=== PATIENT | female | born 1960 | race Caucasian/White ===

== ENCOUNTER → 2019-08-22 16:13 | Outpatient (CLI) | payer MEDICAID, SELFPAY ==
--- NOTE | 2019-08-22 16:30 | RAD_ITS ---
STUDY: X-RAY - LUMBAR SPINE REASON FOR EXAM: Female, 58 years old. PAIN TECHNIQUE: 3 view(s) of the lumbar spine were obtained. COMPARISON: None FINDINGS: Vertebral body heights are preserved. There is moderate diffuse spondylosis. Likely grade 1 anterolisthesis of L5 on S1. No acute fracture is identified. Soft tissues are unremarkable. Impressions are clips are noted. IMPRESSION: Diffuse spondylosis with a mild anterolisthesis of L5 on S1 consider further evaluation with MRI as clinically indicated. Electronically Signed: Rj Dennis, at 21:54 EDT Tel , Service support , RAD/Lumbar Spine 2 or 3 Views
--- NOTE | 2019-08-22 16:30 | RAD_ITS ---
STUDY: X-RAY - LEFT FOOT CLINICAL: Female, 58 years old. PAIN TECHNIQUE: 2 view(s) of the foot. COMPARISON: None. FINDINGS: No acute fracture, or dislocation. Severe arthrosis is noted at the fifth DIP joint. Postsurgical changes and fusion is noted at the first MTP joint. No significant joint space narrowing. No significant productive changes. No significant soft tissue swelling. RAD/Foot 2 Views IMPRESSION: No acute fracture or dislocation. Postsurgical changes and severe arthrosis as above. Electronically Signed: Rj Dennis, at 20:16 EDT Tel , Service support ,
--- NOTE | 2019-08-22 16:30 | RAD_ITS ---
STUDY: X-RAY - RIGHT FOOT CLINICAL: Female, 58 years old. PAIN TECHNIQUE: 2 view(s) of the foot. COMPARISON: None. FINDINGS: No acute fracture, dislocation or osseous destruction. Moderate arthrosis is noted at the first MTP joint and distal fifth interphalangeal joint. No significant soft tissue swelling. IMPRESSION: No acute fracture or dislocation. Degenerative changes as above. Electronically Signed: Rj Dennis, at 21:40 EDT Tel , Service support , RAD/Foot 2 Views
--- NOTE | 2019-08-22 16:30 | RAD_ITS ---
STUDY: X-RAY - RIGHT KNEE REASON FOR EXAM: Female, 58 years old. PAIN TECHNIQUE: 4 view(s) of the knee. COMPARISON: None. FINDINGS: No acute fracture, dislocation or osseous destruction. Diffuse arthrosis most prominently at the patellofemoral articulation. No significant soft tissue swelling. IMPRESSION: No acute fracture or dislocation. Diffuse arthrosis most prominently at the patellofemoral articulation. Electronically Signed: Rj Dennis, at 21:51 EDT Tel , Service support , RAD/Knee 3 Views
--- NOTE | 2019-08-22 16:30 | RAD_ITS ---
STUDY: X-RAY - PELVIS AND BILATERAL HIPS REASON FOR EXAM: Female, 58 years old. PAIN TECHNIQUE: AP view of the pelvis.? 2 views of the right hip, and 2 views of the left hip were obtained. COMPARISON: None. FINDINGS: No acute fracture, dislocation or osseous destruction. Moderate bilateral hip arthrosis and degenerative changes of the visualized lumbar spine No significant soft tissue swelling. IMPRESSION: Moderate diffuse hip and lumbar spine arthrosis. No acute osseous abnormality. Electronically Signed: Rj Dennis, at 21:50 EDT Tel , Service support , RAD/Hips B/L min 2 views w/ Pelvis
[2019-08-22 17:15] LABS: Absolute Lymphocyte Count 1.93 X10^3/uL (0.83-4.51); Absolute Neutrophil Count 4.3 X10^3/uL (2.0-7.7); Basophil# 0.04 X10^3/uL; Basophil% 0.6 % (0-1); Eosinophil# 0.15 X10^3/uL; Eosinophils% 2.1 % (0-5); Hemoglobin 13.5 g/dL (12.0-15.0); Lymphocyte # 1.93 X10^3/ul (4.0); Lymphocyte % 27.6 % (19-41); Mean Corp Hgb Conc 32.1 g/dL (32-36); Mean Corpuscular Hgb 28.4 pg (27.0-32.0); Mean Corpuscular Volume 88.2 fL (81-99); Mean Platelet Vol. 9.1 fl (6.2-12.0); Monocyte# 0.56 X10^3/uL; NRBC Flagged by Analyzer 0 % (0-5); Neutrophil % 61.4 % (47-70); Platelet Count 251 K/mm3 (150-450); RBC Distribution Width CV 12.9 % (11.6-14.6); RBC Distribution Width SD 41.9 fl (35.1-43.9); Red Blood Count 4.76 M/mm3 (4.2-5.4)
[2019-08-22 18:24] LABS: ALB/GLOB Ratio 1.1 RATIO (0.9-2.4); AST(SGOT) 19 U/L (15-37); Alanine Aminotransfer ALT/SGPT 25 U/L (13-56); Albumin, Serum 3.8 g/dL (3.2-5.0); Alkaline Phosphatase 76 U/L (45-117); Anion Gap 7 (5-15); BUN 15 mg/dL (7-18); BUN/Creat Ratio 24.5 RATIO (10-20); Calcium,Total 9.1 mg/dL (8.5-10.1); Chloride 104 mmol/L (98-107); Creatinine, Serum 0.61 mg/dL (0.55-1.02); EST Glomerular Filtration Rate 107 mL/min (>60); Est Glom Filt Rate - Afr Amer 129 mL/min (>60); Globulin 3.4 g/dL (2.2-4.2); Glucose 80 mg/dL (74-106); Potassium 3.6 mmol/L (3.5-5.1); Protein, Total 7.2 g/dL (6.4-8.2); Sodium Level 140 mmol/L (136-145)
[2019-08-23 07:26] LABS: Hepatitis C Antibody Non-Reactive (Nonreactive)
== END ==
PROVIDERS: PCP Family Medicine; Referring Provider Family Medicine Geriatric Medicine; Visit Provider Family Medicine Geriatric Medicine
DX: R53.83 Other fatigue (principal); M54.9 Dorsalgia, unspecified; M25.569 Pain in unspecified knee; M79.609 Pain in unspecified limb; M25.559 Pain in unspecified hip; Z13.89 Encounter for screening for other disorder
CPT/HCPCS: 36415; 72100; 73521; 73562; 73620; 80053; 84443; 85025; 86803

== ENCOUNTER → 2019-10-16 10:42 | Outpatient (CLI) | payer MEDICAID, SELFPAY | PROVIDERS: PCP Family Medicine Geriatric Medicine; Visit Provider Anesthesiology | DX: Z11.59 Encounter for screening for other viral diseases (principal) | CPT/HCPCS: 87635; G2023; U0003 ==

== ENCOUNTER 2019-10-23 07:40 | Day surgery (SDC) | payer MEDICAID, SELFPAY ==
--- NOTE | 2019-10-23 07:57 | H&P.OPEN ---
History of Present Illness Date of Admission: 10/23/19 The patient is a 59 year old F presents for screening colonoscopy. Patient has never had a previous colonoscopy, denies any family history of colon cancer. Denies any chronic abdominal pain however she does states she has reflux daily and has been on Pepcid 40 mg p.o. daily currently but before has also been on omeprazole 20 mg p.o. daily which we have the symptoms better than the Pepcid. Patient states she is been on reflux medication for about 5 years never had an EGD. Patient has bowel movements daily denies any blood Past Medical/Surgical History - Planned Operation Planned Operative Procedure/s: cscope open access Date of Operative Procedure: 10/23/19 Permit Signed: No S.O.S: No Is This Patient Having a Total Joint: No - Previous Hospitalizations/Surgeries HX Hospitalizations: No HX of Surgeries: foot surgery. gallbladder. cataract bilat Any Problems With Anesthesia: No You/Your Family Experience Fever (Hyperthermia) With Anes: No Cholinesterase deficiency: No - Cardiovascular Hx Chest Pain within Last 2 months: No Hx of Irregular Heartbeat and/or Afib: No Hx Heart Attack: No Hx Congestive Heart Failure: No Hx Rheumatic Fever: No Hx Hypertension: No Hx Internal Defibrillator: No Hx Pacemaker: No Hx Cardiac Catheterization: No Hx Cardiac Surgery/Stents/Etc.: No Hx Stress Test: Yes - 3 yrs ago/beryl/pt states negative HX Edema: No Hx Pain in Legs when Walking/Leg Cramps: No - Respiratory Chronic Cough: No HX of Shortness of Breath: No Hoarseness: No Hx Chronic Obstructive Pulmonary Disease (COPD): No Hx Asthma: No Hx Emphysema: No Hx Sleep Apnea: No Hx Oxygen Use at Home: No Hx Respiratory Tract Infection/Cold (presently): No Do You Snore Loudly (louder than talking or can be heard): Yes Do You Often Feel Tired/ Fatigued/ Sleepy Dring Daytime?: Yes Has Anyone Observed You Stop Breathing During Sleep?: No Result (for STOP score): Positive Hx Smoking: Yes - quit 5 yrs ago Smoking Status: Former smoker - Gastrointestinal Hx Gastroesophageal Reflux: Yes Controlled With Meds: Yes - not always Hx Gastrointestinal Disorders: No Hx Gastrointestinal Bleed: No Hx Ulcer: No Hx Hiatal Hernia: No Difficulty Chewing/Swallowing: No Recent Onset of Swallowing Problems: No Special diet followed at home: No Hx Unplanned Weight Loss of 20#: No HX Unplanned Weight Gain of 20#: No - Neurological Hx Seizures: No HX Syncope/Blackout Spells/Unconsciousness: No Hx CVA/Stroke: No Hx Transient Ischemic Attacks (TIA): No Hx Multiple Sclerosis: No Hx Parkinson's Disease: No Hx Head/Neck Injury: No Hx Headaches: No Hx Back Injury/Pain: Yes - occ back pain Recent Onset of Speech Difficulty: No Restless Legs: Yes Does patient have nerve stimulator: No Patient instructed to have device shut off: No Rep notified?: No - Blood Disorder Hx Leukemia: No Bleeding Tendencies: No Hx Deep Vein Thrombosis: No Hx High Cholesterol: No Blood Transmitted Disease: No Hx Hepatitis: No Hx Cirrhosis: No Hx Anemia: No Hx Blood Disorders: No - Reproduction : No Is Patient Lactating: No Hx Hysterectomy: No Hx Tubal Ligation: No Are You Post Menopause: Yes - Genitourinary Hx Renal Disease: No - Musculoskeletal Hx Arthritis: Yes Hx Rheumatoid Arthritis: No Hx Gout: No Recent Onset of an Orthopedic Problem: No - Endocrine Hx Diabetes: No Thyroid Disease: No Hx Steroid Therapy: No - Psycho/Social Hx Substance Use: No Hx Alcohol Use: Yes - occ Hx Anxiety: No Hx Depression: No Mental Illness: No Hx Dementia: No - Miscellaneous Hx Cancer: No Recent Exposure to Contagious Disease: No Active MRSA: No Hx of C-Diff: No Any Loose Teeth: No Allergies No Known Allergies Allergy (Verified 10/23/19 08:16) - Discharge Is Pt Admitted From a Longterm, or a Residential: No After D/C, Where Do you Plan to Go: Return Home - Physical Exam General: Alert, Oriented x3, Cooperative, No apparent distress HEENT: Atraumatic Lungs: Normal air movement Cardiovascular: Regular rate Abdomen: Soft, Non Tender, Non-Distended Extremities: No clubbing, No cyanosis, No edema Neurological: Cranial nerves II-XII grossly intact Psych/Mental Status: Normal Affect Assessment/Plan 59-year-old female screening for colon cancer, GERD Patient currently not precerted for EGD will plan to schedule at a later date. Procedure Criteria Procedure Type: Elective COVID Risk Discussion: The surgeon/proceduralist and patient have discussed in detail the risk of exposure to and/or potential harm posed by the COVID-19 virus with having a surgery/procedure at this time versus the risk of delaying the surgery/procedure. It is not possible to know either the risk of delaying the surgery or procedure or chance of getting an infection with perfect accuracy, but a joint decision was made between the patient and the surgeon/proceduralist to proceed at this time with the scheduled surgery/procedure as indicated on the consent form. Surgery Risks - Colonoscopy I discussed with the patient the risks of the procedure: Yes Risks Include but are not Limited To: Risks include but are not limited to: Bleeding, perforation requiring further surgery, inability to complete colonoscopy requiring barium enema.
[2019-10-23 08:16] VITALS: BP 131/85; PULSE 59; RESP 16; TEMP 37.3; O2SAT 98; BMI 28.4
[2019-10-23] MEDS: Lactated Ringers 1,000 ML 100 ML IV (08:22)
[2019-10-23 09:17] VITALS: BP 110/69; BP 131/85; PULSE 63; RESP 16; TEMP 36.9; O2SAT 100
--- NOTE | 2019-10-23 09:21 | OP.COLON_ITS ---
Patient Name: Stephany Merino Procedure Date: 10/23/2019 8:36 AM Date of : 1960 Age: 59 Procedure: Colonoscopy Indications: Screening for colorectal malignant neoplasm Providers: Xuan Blake MD Referring MD: Lewis Villarreal MD Medicines: Monitored Anesthesia Care Patient Profile: This is a 59 year old female. Last Colonoscopy: none. The patient's first colonoscopy is today. Complications: No immediate complications. Procedure: Pre-Anesthesia Assessment: - Prior to the procedure, a History and Physical was performed, and patient medications and allergies were reviewed. The patient's tolerance of previous anesthesia was also reviewed. The risks and benefits of the procedure and the sedation options and risks were discussed with the patient. All questions were answered, and informed consent was obtained. Prior Anticoagulants: The patient has taken no previous anticoagulant or antiplatelet agents. ASA Grade Assessment: Per anesthesia. After reviewing the risks and benefits, the patient was deemed in satisfactory condition to undergo the procedure. After I obtained informed consent, the scope was passed under direct vision. Throughout the procedure, the patient's blood pressure, pulse, and oxygen saturations were monitored continuously. The Colonoscope was introduced through the anus and advanced to the cecum, identified by the appendiceal orifice, ileocecal valve and palpation. The colonoscopy was performed without difficulty. The patient tolerated the procedure well. The quality of the bowel preparation was good. Scope In: 8:52:55 AM Scope Withdrawal Time 0 hours 9 minutes 41 seconds Scope Out: 9:13:12 AM Total Procedure Duration Time 0 hours 20 minutes 17 seconds Findings: Hemorrhoids were found on perianal exam. A few small-mouthed diverticula were found in the sigmoid colon. External and internal hemorrhoids were found. The hemorrhoids were Grade I (internal hemorrhoids that do not prolapse). The exam was otherwise without abnormality. Impression: - Hemorrhoids found on perianal exam. - Diverticulosis in the sigmoid colon. - External and internal hemorrhoids. - The examination was otherwise normal. - No specimens collected. Recommendation: - Discharge patient to home. - High fiber diet. - Continue present medications. - Repeat colonoscopy in 10 years for screening purposes. Procedure Code(s): --- Professional --- G0121, PT, Colorectal cancer screening; colonoscopy on individual not meeting criteria for high risk Diagnosis Code(s): --- Professional --- Z12.11, Encounter for screening for malignant neoplasm of colon K64.0, First degree hemorrhoids K57.30, Diverticulosis of large intestine without perforation or abscess without bleeding CPT copyright 2017 [employer]. All rights reserved. The codes documented in this report are preliminary and upon tug hand review may be revised to meet current compliance requirements. MD Xuan Justice MD 10/23/2019 9:20:45 AM This report has been signed electronically. Number of Addenda: 0 Note Initiated On: 10/23/2019 8:36 AM
--- NOTE | 2019-10-23 09:21 | OP.CCLET_ITS ---
10/23/2019 Lewis Villarreal MD [address] [place] [address] Re : Colonoscopy procedure for Stephany Merino Dear Dr. Villarreal This procedure was performed on Wednesday, October 23, 2019. My impressions and recommendations are as follows: Impressions : - Hemorrhoids found on perianal exam. - Diverticulosis in the sigmoid colon. - External and internal hemorrhoids. - The examination was otherwise normal. - No specimens collected. Recommendations : - Discharge patient to home. - High fiber diet. - Continue present medications. - Repeat colonoscopy in 10 years for screening purposes. My findings are described in the full procedure note, which is enclosed. If I can be of further assistance, please feel free to contact me at Doctor phone number(s): , Work: . Sincerely, MD Xuan Justice MD 10/23/2019 9:20:45 AM This report has been signed electronically.
[2019-10-23 09:22] VITALS: BP 109/70; BP 131/85; PULSE 56; RESP 16; O2SAT 98
[2019-10-23 09:27] VITALS: BP 113/67; BP 131/85; PULSE 55; RESP 17; O2SAT 100
[2019-10-23 09:32] VITALS: BP 114/78; BP 131/85; PULSE 61; RESP 16; TEMP 36.4; O2SAT 100
[2019-10-23 09:54] VITALS: BP 131/85
== END 2019-10-23 09:55 | disposition home or self-care (01) ==
LOC: EN 07:41 → AC 07:43
PROVIDERS: PCP Family Medicine Geriatric Medicine; Referring Provider Family Medicine Geriatric Medicine; Visit Provider Surgery
PROC: 0DJD8ZZ Inspection of Lower Intestinal Tract, Via Natural or Artificial Opening Endoscopic (ICD-10-PCS; CPT 45378; principal; 2019-10-23 08:40)
DX: Z12.11 Encounter for screening for malignant neoplasm of colon (principal); Z87.891 Personal history of nicotine dependence; K21.9 Gastro-esophageal reflux disease without esophagitis; M19.90 Unspecified osteoarthritis, unspecified site; K57.30 Diverticulosis of large intestine without perforation or abscess without bleeding; K64.4 Residual hemorrhoidal skin tags; K64.0 First degree hemorrhoids
CPT/HCPCS: 45378; J7120; J2405

== ENCOUNTER 2019-11-11 09:25 | Day surgery (SDC) | payer MEDICAID, SELFPAY ==
[2019-11-11] VITALS (7 sets, daily range): BP systolic 102–132; BP diastolic 68–74; PULSE 49–57; RESP 16; TEMP 36.3–36.8; O2SAT 96–100; BMI 28.8
--- NOTE | 2019-11-11 | GASB_PTH ---
PATIENT: YULIA BERMEO LOC: EN U#:[id number] AGE/SX: 59/F ROOM: RE11/11/[address]: Dr. Xuan Blake MD : 1960 BED: DIS: 11/11/2019 SPEC #: [id number] RECD: 11/11/19 11:58 STATUS: JEFFREY REAlyse #: [id number] MARIAELENA: 11/11/19 00:[address]: Xuan Blake DEPT: SURGICAL PATHOLOGY RECD BY: Robert Youssef ENTERED: 11/11/19 11:58 SP TYPE: Gastric Bx OTHR DR: Dr. Lewis Villarreal MD Tissues: A - Gastric mucous membrane B - Gastric mucous membrane C - Esophagus, NOS Procedures: Surgery Specimen Level IV HEADER OPERATION: EGD open access (MAC) PRE-OP DIAGNOSIS: Acid reflux TISSUE SUBMITTED: A - Antral biopsy for H. pylori and pathology, B - GE junction biopsy, C - Mid esophageal biopsy MICROSCOPIC DIAGNOSIS A. Gastric antrum, biopsy: Mild chronic gastritis. See comment. B. Gastroesophageal junction, biopsy: Fragments of benign squamous mucosa. No evidence of inflammation. C. Mid esophagus, biopsy: Fragments of benign squamous mucosa. No evidence of inflammation. AM:isai 11/12/19 COMMENT A. The results of immunohistochemistry for Helicobacter pylori will be reported separately ([id number]). MICROSCOPIC DESCRIPTION Slides are reviewed. GROSS DESCRIPTION A - Received in fixative is one container labeled with the patient's name and designated antral biopsy. The specimen consists of one irregular fragment of light negro soft tissue that measures 0.6 x 0.3 x 0.1 cm. The specimen is totally submitted in one cassette. B - Received in fixative is one container labeled with the patient's name and designated GE junction biopsy. The specimen consists of two irregular fragments of light negro soft tissue that in aggregate measure 0.5 x 0.3 x 0.1 cm. The specimen is totally submitted in one cassette. C - Received in fixative is one container labeled with the patient's name and designated mid esophagus. The specimen consists of one irregular fragment of light negro soft tissue that measures 0.6 x 0.6 x <0.1 cm. The specimen is totally submitted in one cassette. / AM:isai 11/11/19 TC:3 CPT: 76161 x3
[2019-11-11] MEDS: Lactated Ringers 1,000 ML 100 ML IV (09:45)
--- NOTE | 2019-11-11 10:21 | H&P.OPEN ---
History of Present Illness Date of Admission: 11/11/19 The patient is a 59 year old F presents for an EGD as patient has been on reflux medication?Pepcid 40 mg p.o. daily currently but was previously on omeprazole 20 mg p.o. daily-for about 5 years never had an EGD.. States that the symptoms are controlled with medication. Patient recently had a colonoscopy which only showed diverticulosis. Past Medical/Surgical History - Planned Operation Planned Operative Procedure/s: EGD Date of Operative Procedure: 11/11/19 Permit Signed: No S.O.S: No Is This Patient Having a Total Joint: No - Previous Hospitalizations/Surgeries HX Hospitalizations: No HX of Surgeries: foot surgery. gallbladder. cataract bilat. colonoscopy 10/23/2019 Any Problems With Anesthesia: No You/Your Family Experience Fever (Hyperthermia) With Anes: No Cholinesterase deficiency: No - Cardiovascular Hx Chest Pain within Last 2 months: No Hx of Irregular Heartbeat and/or Afib: No Hx Heart Attack: No Hx Congestive Heart Failure: No Hx Rheumatic Fever: No Hx Hypertension: No Hx Internal Defibrillator: No Hx Pacemaker: No Hx Cardiac Catheterization: No Hx Cardiac Surgery/Stents/Etc.: No Hx Stress Test: Yes - 3 yrs ago/beryl/pt states negative HX Edema: No Hx Pain in Legs when Walking/Leg Cramps: No - Respiratory Chronic Cough: No HX of Shortness of Breath: No Hoarseness: No Hx Chronic Obstructive Pulmonary Disease (COPD): No Hx Asthma: No Hx Emphysema: No Hx Sleep Apnea: No Hx Oxygen Use at Home: No Hx Respiratory Tract Infection/Cold (presently): No Do You Snore Loudly (louder than talking or can be heard): Yes Do You Often Feel Tired/ Fatigued/ Sleepy Dring Daytime?: Yes Has Anyone Observed You Stop Breathing During Sleep?: No Result (for STOP score): Positive Hx Smoking: Yes - quit 2014 Smoking Status: Former smoker - Gastrointestinal Hx Gastroesophageal Reflux: Yes Controlled With Meds: Yes - not always/famotidine Hx Gastrointestinal Disorders: No Hx Gastrointestinal Bleed: No Hx Ulcer: No Hx Hiatal Hernia: No Difficulty Chewing/Swallowing: No Recent Onset of Swallowing Problems: No Special diet followed at home: No Hx Unplanned Weight Loss of 20#: No HX Unplanned Weight Gain of 20#: No - Neurological Hx Seizures: No HX Syncope/Blackout Spells/Unconsciousness: No Hx CVA/Stroke: No Hx Transient Ischemic Attacks (TIA): No Hx Multiple Sclerosis: No Hx Parkinson's Disease: No Hx Head/Neck Injury: No Hx Headaches: No Hx Back Injury/Pain: Yes - occ back pain/arthritis Recent Onset of Speech Difficulty: No Restless Legs: Yes Does patient have nerve stimulator: No - Blood Disorder Hx Leukemia: No Bleeding Tendencies: No Hx Deep Vein Thrombosis: No Hx High Cholesterol: No Blood Transmitted Disease: No Hx Hepatitis: No Hx Cirrhosis: No Hx Anemia: No Hx Blood Disorders: No - Reproduction : No Is Patient Lactating: No Hx Hysterectomy: No Hx Tubal Ligation: No Are You Post Menopause: Yes - Genitourinary Hx Renal Disease: No - prolapse bladder per hx - Musculoskeletal Hx Arthritis: Yes - back/feet/knees,hips Hx Rheumatoid Arthritis: No Hx Gout: No Recent Onset of an Orthopedic Problem: No - Endocrine Hx Diabetes: No Thyroid Disease: No Hx Steroid Therapy: No - Psycho/Social Hx Substance Use: No Hx Alcohol Use: Yes - occ Hx Anxiety: No Hx Depression: No Mental Illness: No Hx Dementia: No - Miscellaneous Hx Cancer: No Recent Exposure to Contagious Disease: No Active MRSA: No Hx of C-Diff: No Any Loose Teeth: No Allergies No Known Allergies Allergy (Verified 11/11/19 10:07) - Discharge Is Pt Admitted From a Retirement, or a Penitentiary: No Who Could Help: family After D/C, Where Do you Plan to Go: Return Home - Physical Exam Vitals/I&O's: Vital Signs Temp Pulse Resp BP Pulse Ox 98.3 F 57 L 16 132/68 H 100 11/11/19 10:07 11/11/19 10:07 11/11/19 10:07 11/11/19 10:07 11/11/19 10:07 Oxygen Delivery Method Room Air Weight: 184 lb Body Mass Index (BMI) 28.8 General: Alert, Oriented x3, Cooperative, No apparent distress HEENT: Atraumatic Lungs: Normal air movement Cardiovascular: Regular rate Abdomen: Soft, Non Tender, Non-Distended Extremities: No clubbing, No cyanosis, No edema Assessment/Plan All Active Problems Acid reflux (Acute) 59-year-old female with GERD Procedure Criteria Procedure Type: Elective COVID Risk Discussion: The surgeon/proceduralist and patient have discussed in detail the risk of exposure to and/or potential harm posed by the COVID-19 virus with having a surgery/procedure at this time versus the risk of delaying the surgery/procedure. It is not possible to know either the risk of delaying the surgery or procedure or chance of getting an infection with perfect accuracy, but a joint decision was made between the patient and the surgeon/proceduralist to proceed at this time with the scheduled surgery/procedure as indicated on the consent form. Surgery Risks - Colonoscopy I discussed with the patient the risks of the procedure: Yes Risks Include but are not Limited To: Risks include but are not limited to: Bleeding, perforation requiring further surgery, anesthesia etc.
--- NOTE | 2019-11-11 10:30 | IMM_PTH ---
PATIENT: YULIA BERMEO LOC: EN U#:[id number] AGE/SX: 59/F ROOM: RE11/11/[address]: Dr. Xuan Blake MD : 1960 BED: DIS: 11/11/2019 SPEC #: [id number] RECD: 11/11/19 12:06 STATUS: JEFFREY REAlyse #: [id number] MARIAELENA: 11/11/19 10:[address]: Xuan Blake DEPT: IMMUNOHISTOCHEMISTRY RECD BY: [place]ia Huynh ENTERED: 11/11/19 12:06 SP TYPE: IMMUNO OTHR DR: Dr. Lewis Villarreal MD Tissues: A - Stomach, NOS Procedures: H Pylori (initial) PHYSICIAN & INSTITUTION [place] [address] SPECIMEN INFORMATION: Tissue Source: A - Antral biopsy Clinical Info: Acid reflux Specimen Number: [id number] CPT code: 94907 METHODOLOGY: Deparaffinized sections of prefer/formalin-fixed tissue or PAP/DQ stained slides are incubated with monoclonal/polyclonal antibodies/oligonucleotide probes. Localization is made via biotin free immunoperoxidase method. Appropriate controls are performed and reacted as expected. Results on target cell population are indicated in the following table: RESULTS: ANTIBODY / CLONE RESULT Block A H Pylori (polyclonal) negative These tests were developed and their performance characteristics determined by [facility]. They may not have been cleared or approved by the U.S. Food and Drug Administration. The FDA has determined that such clearance or approval is not necessary. INTERPRETATION: A. Antral biopsy: Negative for Helicobacter pylori organisms. AM:isai 11/13/19
--- NOTE | 2019-11-11 10:48 | OP.CCLET_ITS ---
11/11/2019 Lewis Villarreal MD [address] [place] [address] Re : Upper GI endoscopy procedure for Stephany Merino Dear Dr. Villarreal This procedure was performed on Monday, November 11, 2019. My impressions and recommendations are as follows: Impressions : - Z-line variable, 38 cm from the incisors. Biopsied. - Erythematous mucosa in the antrum. Biopsied. - Erythema in the middle third of the esophagus. Biopsied. - Normal examined duodenum. Recommendations : - Await pathology results. - Discharge patient to home. - Use a proton pump inhibitor PO daily instead of pepcid. - Continue present medications. My findings are described in the full procedure note, which is enclosed. If I can be of further assistance, please feel free to contact me at Doctor phone number(s): , Work: . Sincerely, MD Xuan Justice MD 11/11/2019 10:47:30 AM This report has been signed electronically.
--- NOTE | 2019-11-11 10:48 | OP.EGD_ITS ---
Patient Name: Stephany Merino Procedure Date: 11/11/2019 10:24 AM Date of : 1960 Age: 59 Procedure: Upper GI endoscopy Indications: Follow-up of gastro-esophageal reflux disease Providers: Xuan Blake MD Referring MD: Lewis Villarreal MD Medicines: Monitored Anesthesia Care Patient Profile: This is a 59 year old female. Complications: No immediate complications. Procedure: Pre-Anesthesia Assessment: - Prior to the procedure, a History and Physical was performed, and patient medications and allergies were reviewed. The patient's tolerance of previous anesthesia was also reviewed. The risks and benefits of the procedure and the sedation options and risks were discussed with the patient. All questions were answered, and informed consent was obtained. Prior Anticoagulants: The patient has taken no previous anticoagulant or antiplatelet agents. ASA Grade Assessment: Per anesthesia. After reviewing the risks and benefits, the patient was deemed in satisfactory condition to undergo the procedure. After obtaining informed consent, the endoscope was passed under direct vision. Throughout the procedure, the patient's blood pressure, pulse, and oxygen saturations were monitored continuously. The gastroscope was introduced through the mouth, and advanced to the second part of duodenum. The upper GI endoscopy was accomplished without difficulty. The patient tolerated the procedure well. Scope In: 10:31:01 AM Scope Out: 10:36:54 AM Total Procedure Duration Time 0 hours 5 minutes 53 seconds Findings: The Z-line was variable and was found 38 cm from the incisors. Biopsies were taken with a cold forceps for histology. Mildly erythematous mucosa without bleeding was found in the gastric antrum. Biopsies were taken with a cold forceps for histology. Biopsies were taken with a cold forceps for Helicobacter pylori cultures. Mild erythema was found in the middle third of the esophagus. Biopsies were taken with a cold forceps for histology. The examined duodenum was normal. Impression: - Z-line variable, 38 cm from the incisors. Biopsied. - Erythematous mucosa in the antrum. Biopsied. - Erythema in the middle third of the esophagus. Biopsied. - Normal examined duodenum. Recommendation: - Await pathology results. - Discharge patient to home. - Use a proton pump inhibitor PO daily instead of pepcid. - Continue present medications. Procedure Code(s): --- Professional --- 43999, Esophagogastroduodenoscopy, flexible, transoral; with biopsy, single or multiple Diagnosis Code(s): --- Professional --- K22.8, Other specified diseases of esophagus K31.89, Other diseases of stomach and duodenum K21.9, Gastro-esophageal reflux disease without esophagitis CPT copyright 2017 [employer]. All rights reserved. The codes documented in this report are preliminary and upon box toe buffer review may be revised to meet current compliance requirements. MD Xuan Justice MD 11/11/2019 10:47:30 AM This report has been signed electronically. Number of Addenda: 0 Note Initiated On: 11/11/2019 10:24 AM
== END 2019-11-11 11:47 | disposition home or self-care (01) ==
LOC: EN 09:27 → AC 09:27
PROVIDERS: Anesthesiology; PCP Family Medicine Geriatric Medicine; Referring Provider Family Medicine Geriatric Medicine; Visit Provider Surgery
PROC: 0DJ08ZZ Inspection of Upper Intestinal Tract, Via Natural or Artificial Opening Endoscopic (ICD-10-PCS; CPT 43235; principal; 2019-11-11 10:25)
DX: K21.9 Gastro-esophageal reflux disease without esophagitis (principal); Z87.891 Personal history of nicotine dependence; G25.81 Restless legs syndrome; K29.50 Unspecified chronic gastritis without bleeding; K31.89 Other diseases of stomach and duodenum; K22.8 Other specified diseases of esophagus; Z79.899 Other long term (current) drug therapy; Z11.59 Encounter for screening for other viral diseases
CPT/HCPCS: 43239; 87635; 88305; 88342; G2023; J7120; U0003

== ENCOUNTER → 2019-12-16 11:55 | Outpatient (CLI) | payer MEDICAID, SELFPAY ==
[2019-11-11 10:07] VITALS: BMI 28.8
[2019-12-16 12:48] LABS: Absolute Neutrophil Count 3.1 X10^3/uL (2.0-7.7); Basophil# 0.06 X10^3/uL; Eosinophil# 0.22 X10^3/uL; Eosinophils% 3.6 % (0-5); Hematocrit 41.5 % (37-47); Hemoglobin 13.2 g/dL (12.0-15.0); Lymphocyte % 34.7 % (19-41); Mean Corp Hgb Conc 31.8 g/dL (32-36); Mean Corpuscular Hgb 28.4 pg (27.0-32.0); Mean Corpuscular Volume 89.4 fL (81-99); Mean Platelet Vol. 9.2 fl (6.2-12.0); Monocyte# 0.59 X10^3/uL; Monocyte% 9.7 % (0-10); NRBC Flagged by Analyzer 0 % (0-5); Neutrophil # 3.08 X10^3/uL (2.7-7.7); Neutrophil % 50.8 % (47-70); Platelet Count 287 K/mm3 (150-450); RBC Distribution Width CV 13.4 % (11.6-14.6); RBC Distribution Width SD 43.4 fl (35.1-43.9); Red Blood Count 4.64 M/mm3 (4.2-5.4); White Blood Count 6.1 K/mm3 (4.4-11.0)
[2019-12-16 13:20] LABS: ALB/GLOB Ratio 1.1 RATIO (0.9-2.4); AST(SGOT) 18 U/L (15-37); Alanine Aminotransfer ALT/SGPT 27 U/L (13-56); Albumin, Serum 3.7 g/dL (3.2-5.0); Alkaline Phosphatase 78 U/L (45-117); Anion Gap 3 (5-15); BUN 11 mg/dL (7-18); BUN/Creat Ratio 18.8 RATIO (10-20); Calcium,Total 8.8 mg/dL (8.5-10.1); Chloride 109 mmol/L (98-107); Creatinine, Serum 0.58 mg/dL (0.55-1.02); EST Glomerular Filtration Rate 112 mL/min (>60); Est Glom Filt Rate - Afr Amer 136 mL/min (>60); Globulin 3.5 g/dL (2.2-4.2); Glucose 83 mg/dL (74-106); Potassium 3.7 mmol/L (3.5-5.1); Protein, Total 7.2 g/dL (6.4-8.2); Sodium Level 142 mmol/L (136-145); Thyroid Stim Hormone (TSH) 1.25 uIU/mL (0.358-3.74)
== END ==
PROVIDERS: PCP Family Medicine Geriatric Medicine; Visit Provider Family Medicine Geriatric Medicine
DX: R53.83 Other fatigue (principal)
CPT/HCPCS: 36415; 80053; 84443; 85025

== ENCOUNTER → 2020-01-13 11:42 | Outpatient (CLI) | payer MEDICAID, SELFPAY ==
[2019-11-11 10:07] VITALS: BMI 28.8
--- NOTE | 2020-01-13 13:47 | NEURO_ITS ---
NCS and/or EMG Patient Report Ordering Doctor: Lewis Villarreal Chi DATE OF SERVICE: 01/13/20 Indication: Years of bilateral foot and knee pain. Symptoms are intermittent, with occasional shooting sensations that travel up the leg from the foot and ankle. No significant weakness or loss of sensation in the lower extremities. Symptoms are fairly symmetric. Findings: Nerve conduction studies were performed in the right and left lower extremity. The right peroneal motor study recording the extensor digitorum brevis showed a normal amplitude, normal distal latency and normal conduction velocity. No conduction block or focal slowing was present across the fibular neck. The right tibial motor study recording the abductor hallucis brevis showed a normal amplitude, normal distal latency and normal conduction velocity. Right sural sensory response showed a normal amplitude and conduction velocity. Right superficial peroneal sensory response showed a normal amplitude and conduction velocity. The right medial plantar response showed a normal amplitude and conduction velocity. The right lateral plantar response could not be obtained secondary to the presence of a callus. The left peroneal motor study recording the extensor digitorum brevis showed a normal amplitude, normal distal latency and normal conduction velocity. No conduction block or focal slowing was present across the fibular neck. The left tibial motor study recording the abductor hallucis brevis showed a normal amplitude, normal distal latency and normal conduction velocity. Left sural sensory response showed a normal amplitude and conduction velocity. Left superficial peroneal sensory response showed a normal amplitude and conduction velocity. The left medial plantar response showed a normal amplitude and conduction velocity. The left lateral plantar response could not be obtained secondary to the presence of a callus. Needle EMG of the left lower extremity and lumbar paraspinal muscles was performed. No denervation was present in any muscle. All motor unit morphology, activation and recruitment patterns were normal. Needle EMG of the right lower extremity was omitted given the symmetric symptoms and absence of findings in the left lower extremity. Impression: This is a normal study. There is no electrophysiologic evidence of lumbosacral radiculopathy or peripheral neuropathy in the left lower extremity. Please note: the electrodiagnosis of radiculopathy is made on the basis of excluding peripheral nerve lesions on nerve conduction studies and the needle EMG demonstrating denervation and/or reinnervation in the distribution of one or more nerve roots (i.e., acute and/or chronic axonal loss). Thus, electrodiagnost ic studies are insensitive in detecting radiculopathy in the absence of axonal loss (e.g., in the setting of compression resulting in intermittent ischemia or mechanical deformation; or demyelination without axonal loss). Thus, clinical correlation is required in the interpretation of this negative electrodiagnostic study for radiculopathy. Barry Lewis D.O.
== END ==
PROVIDERS: PCP Family Medicine Geriatric Medicine; Referring Provider Family Medicine Geriatric Medicine; Visit Provider Family Medicine Geriatric Medicine
DX: R20.9 Unspecified disturbances of skin sensation (principal)
CPT/HCPCS: 95886; 95912

== ENCOUNTER → 2020-05-25 10:52 | Outpatient (CLI) | payer MEDICAID, SELFPAY ==
[2019-11-11 10:07] VITALS: BMI 28.8
[2020-05-25 12:18] LABS: Absolute Lymphocyte Count 2.08 X10^3/uL (0.83-4.51); Absolute Neutrophil Count 3.8 X10^3/uL (2.0-7.7); Basophil# 0.04 X10^3/uL; Basophil% 0.6 % (0-1); Eosinophil# 0.17 X10^3/uL; Eosinophils% 2.5 % (0-5); Hematocrit 42.5 % (37-47); Hemoglobin 13.8 g/dL (12.0-15.0); Lymphocyte # 2.08 X10^3/ul (4.0); Lymphocyte % 30.3 % (19-41); Mean Corp Hgb Conc 32.5 g/dL (32-36); Mean Corpuscular Hgb 28.8 pg (27.0-32.0); Mean Corpuscular Volume 88.5 fL (81-99); Monocyte# 0.81 X10^3/uL; Monocyte% 11.8 % (0-10); NRBC Flagged by Analyzer 0 % (0-5); Neutrophil # 3.75 X10^3/uL (2.7-7.7); Neutrophil % 54.7 % (47-70); Platelet Count 285 K/mm3 (150-450); RBC Distribution Width CV 13.1 % (11.6-14.6); RBC Distribution Width SD 42.4 fl (35.1-43.9); White Blood Count 6.9 K/mm3 (4.4-11.0)
[2020-05-25 13:25] LABS: AST(SGOT) 22 U/L (15-37); Alanine Aminotransfer ALT/SGPT 32 U/L (13-56); Albumin, Serum 3.6 g/dL (3.2-5.0); Alkaline Phosphatase 89 U/L (45-117); Anion Gap 7 (5-15); BUN 26 mg/dL (7-18); Calcium,Total 9.2 mg/dL (8.5-10.1); Chloride 107 mmol/L (98-107); Creatinine, Serum 0.67 mg/dL (0.55-1.02); EST Glomerular Filtration Rate 96 mL/min (>60); Est Glom Filt Rate - Afr Amer 117 mL/min (>60); Globulin 3.6 g/dL (2.2-4.2); Glucose 100 mg/dL (74-106); Potassium 3.8 mmol/L (3.5-5.1); Protein, Total 7.2 g/dL (6.4-8.2); Sodium Level 142 mmol/L (136-145); Thyroid Stim Hormone (TSH) 0.74 uIU/mL (0.358-3.74)
== END ==
PROVIDERS: PCP Family Medicine Geriatric Medicine; Visit Provider Family Medicine Geriatric Medicine
DX: I10 Essential (primary) hypertension (principal)
CPT/HCPCS: 36415; 80053; 84443; 85025

== ENCOUNTER 2020-06-25 15:18 | Outpatient (RCR) | payer MEDICAID, SELFPAY ==
[2019-11-11 10:07] VITALS: BMI 28.8
[2020-06-25] MEDS: COVID-19 VACC, MRNA(PFIZER)/PF 30 MCG/0.3 ML SYRINGE IM (17:14)
[2020-07-16] MEDS: COVID-19 VACC, MRNA(PFIZER)/PF 30 MCG/0.3 ML SYRINGE IM (16:55)
== END 2020-09-22 23:59 ==
LOC: IMMUN 15:18
PROVIDERS: PCP Family Medicine Geriatric Medicine; Visit Provider Family Medicine
DX: Z23 Encounter for immunization (principal)
CPT/HCPCS: 0001A; 0002A; 91300

== ENCOUNTER → 2020-08-24 11:52 | Outpatient (CLI) | payer MEDICAID, SELFPAY ==
[2019-11-11 10:07] VITALS: BMI 28.8
[2020-08-24 12:19] LABS: Absolute Lymphocyte Count 1.77 X10^3/uL (0.83-4.51); Absolute Neutrophil Count 2.9 X10^3/uL (2.0-7.7); Basophil# 0.04 X10^3/uL; Basophil% 0.7 % (0-1); Eosinophil# 0.11 X10^3/uL; Hematocrit 42.7 % (37-47); Hemoglobin 13.6 g/dL (12.0-15.0); Lymphocyte # 1.77 X10^3/ul (0.83-4.51); Lymphocyte % 32.7 % (19-41); Mean Corp Hgb Conc 31.9 g/dL (32-36); Mean Corpuscular Hgb 28.3 pg (27.0-32.0); Mean Platelet Vol. 9.2 fl (6.2-12.0); Monocyte# 0.58 X10^3/uL; Monocyte% 10.7 % (0-10); NRBC Flagged by Analyzer 0 % (0-5); Neutrophil % 53.7 % (47-70); Platelet Count 272 K/mm3 (150-450); RBC Distribution Width CV 13.1 % (11.6-14.6); RBC Distribution Width SD 42.5 fl (35.1-43.9); White Blood Count 5.4 K/mm3 (4.4-11.0)
[2020-08-24 12:44] LABS: ALB/GLOB Ratio 1.1 RATIO (0.9-2.4); AST(SGOT) 17 U/L (15-37); Alanine Aminotransfer ALT/SGPT 23 U/L (13-56); Albumin, Serum 3.6 g/dL (3.2-5.0); Alkaline Phosphatase 88 U/L (45-117); Anion Gap 4 (5-15); BUN 18 mg/dL (7-18); BUN/Creat Ratio 29.9 RATIO (10-20); Calcium,Total 8.9 mg/dL (8.5-10.1); Chloride 108 mmol/L (98-107); EST Glomerular Filtration Rate 108 mL/min (>60); Est Glom Filt Rate - Afr Amer 131 mL/min (>60); Globulin 3.3 g/dL (2.2-4.2); Glucose 90 mg/dL (74-106); Potassium 3.8 mmol/L (3.5-5.1); Protein, Total 6.9 g/dL (6.4-8.2); Sodium Level 143 mmol/L (136-145); Thyroid Stim Hormone (TSH) 0.95 uIU/mL (0.358-3.74)
== END ==
PROVIDERS: PCP Family Medicine Geriatric Medicine; Visit Provider Family Medicine Geriatric Medicine
DX: I10 Essential (primary) hypertension (principal)
CPT/HCPCS: 36415; 80053; 84443; 85025

== ENCOUNTER → 2021-02-22 11:35 | Outpatient (CLI) | payer MEDICAID, SELFPAY ==
--- NOTE | 2021-02-22 11:40 | RAD_ITS ---
STUDY: XR Knee Complete 4 Views or More 02/22/2021 2:25 PM REASON FOR EXAM: Female, 60 years old. PAIN TECHNIQUE: XR Knee Complete 4 Views or More COMPARISON: None. FINDINGS: Normal visualized distal femur. Normal visualized proximal tibia and fibula. Normal proximal tibiofibular articulation. Normal medial femorotibial compartment. Normal lateral femorotibial compartment. There is mild degenerative arthrosis of the patellofemoral articulation. The soft tissue structures are unremarkable. RAD/Knee 4 or More Views IMPRESSION: There is mild degenerative arthrosis of the patellofemoral articulation. Electronically Signed: Denis Marques MD at 14:26 EST , Service support ,
--- NOTE | 2021-02-22 11:40 | RAD_ITS ---
STUDY: X-RAY - LUMBAR SPINE REASON FOR EXAM: Female, 60 years old. Back pain LOW BACK PAIN TECHNIQUE: XR Spine Lumbar 2 or 3 Views COMPARISON: None FINDINGS: Normal lumbar lordosis. There is a dextroscoliosis of the lumbar spine. There is a normal alignment of the vertebrae. There is multilevel endplate spondylosis of the lumbar vertebrae. There is multi-level degenerative disc disease with multi-level disc space narrowing. The soft tissue structures are unremarkable. RAD/Lumbar Spine 2 or 3 Views IMPRESSION: Degenerative changes of the spine, as detailed above. Electronically Signed: Denis Marques MD at 14:26 EST , Service support ,
[2021-02-22 12:30] LABS: Absolute Lymphocyte Count 1.82 X10^3/uL (0.83-4.51); Absolute Neutrophil Count 3.3 X10^3/uL (2.0-7.7); Basophil# 0.04 X10^3/uL; Basophil% 0.7 % (0-1); Eosinophil# 0.17 X10^3/uL; Eosinophils% 2.8 % (0-5); Hematocrit 40.3 % (37-47); Lymphocyte # 1.82 X10^3/ul (0.83-4.51); Lymphocyte % 30.2 % (19-41); Mean Corp Hgb Conc 32.3 g/dL (32-36); Mean Corpuscular Hgb 28.8 pg (27.0-32.0); Mean Corpuscular Volume 89.4 fL (81-99); Mean Platelet Vol. 9.4 fl (6.2-12.0); Monocyte# 0.65 X10^3/uL; Monocyte% 10.8 % (0-10); NRBC Flagged by Analyzer 0 % (0-5); Neutrophil # 3.32 X10^3/uL (2.7-7.7); Neutrophil % 55.2 % (47-70); Platelet Count 274 K/mm3 (150-450); RBC Distribution Width CV 12.9 % (11.6-14.6); RBC Distribution Width SD 42.1 fl (35.1-43.9); Red Blood Count 4.51 M/mm3 (4.2-5.4)
[2021-02-22 13:06] LABS: ALB/GLOB Ratio 0.9 RATIO (0.9-2.4); AST(SGOT) 19 U/L (15-37); Alanine Aminotransfer ALT/SGPT 21 U/L (13-56); Albumin, Serum 3.3 g/dL (3.2-5.0); Alkaline Phosphatase 96 U/L (45-117); Anion Gap 4 (5-15); BUN 16 mg/dL (7-18); BUN/Creat Ratio 25.7 RATIO (10-20); Calcium,Total 8.7 mg/dL (8.5-10.1); Chloride 110 mmol/L (98-107); Creatinine, Serum 0.62 mg/dL (0.55-1.02); EST Glomerular Filtration Rate 104 mL/min (>60); Est Glom Filt Rate - Afr Amer 126 mL/min (>60); Globulin 3.5 g/dL (2.2-4.2); Glucose 94 mg/dL (74-106); Protein, Total 6.8 g/dL (6.4-8.2); Sodium Level 144 mmol/L (136-145); Thyroid Stim Hormone (TSH) 0.88 uIU/mL (0.358-3.74)
== END ==
PROVIDERS: PCP Family Medicine Geriatric Medicine; Referring Provider Family Medicine Geriatric Medicine; Visit Provider Family Medicine Geriatric Medicine
DX: M54.50 Low back pain, unspecified (principal); M25.569 Pain in unspecified knee; I10 Essential (primary) hypertension
CPT/HCPCS: 36415; 72100; 73564; 80053; 84443; 85025

== ENCOUNTER → 2021-03-15 09:30 | Outpatient (CLI) | payer MEDICAID, SELFPAY | PROVIDERS: PCP Family Medicine Geriatric Medicine; Referring Provider Family Medicine Geriatric Medicine; Visit Provider Family Medicine Geriatric Medicine | DX: R68.83 Chills (without fever) (principal) | CPT/HCPCS: 87633; 87635; C9803; U0005; U0003 ==

== ENCOUNTER → 2021-04-08 13:27 | Outpatient (CLI) | payer MEDICAID, SELFPAY | PROVIDERS: PCP Family Medicine Geriatric Medicine; Referring Provider Physician Assistant Medical; Visit Provider Physician Assistant Medical | DX: Z11.52 Encounter for screening for COVID-19 (principal) | CPT/HCPCS: 87635; U0005; U0003 ==

== ENCOUNTER 2021-04-21 09:26 | Outpatient (CLI) | payer MEDICAID, SELFPAY ==
[2021-04-22 10:23] LABS: Alpha Antitrypsin Serum 134 mg/dL (101-187)
== END 2021-04-21 23:59 | disposition short-term general hospital (02) ==
LOC: POLAB3 09:28
PROVIDERS: PCP Family Medicine Geriatric Medicine; Visit Provider Family Medicine Geriatric Medicine
DX: P78.81 Congenital cirrhosis (of liver) (principal)
CPT/HCPCS: 36415; 82103

== ENCOUNTER 2021-06-01 20:00 | Outpatient (CLI) | payer MEDICAID, SELFPAY | END 2021-06-01 23:59 | disposition home or self-care (01) | PROVIDERS: PCP Family Medicine Geriatric Medicine; Referring Provider Nurse Practitioner Acute Care; Visit Provider Nurse Practitioner Acute Care | DX: G47.33 Obstructive sleep apnea (adult) (pediatric) (principal) | CPT/HCPCS: 95810 ==

== ENCOUNTER 2021-06-24 13:30 | Outpatient (RCR) | payer MEDICAID, SELFPAY ==
--- NOTE | 2021-05-05 14:38 | HP.PTEVAL_ITS ---
Patient's Visit Information YULIA BERMEO is a 60 year old F referred to Physical Therapy by Dr. Lewis Villarreal MD with a diagnosis of R LUMBAR RADICULOPATHY AND OA OF L KNEE. Date of Evaluation: 05/05/21 Physical Therapist: Kellen Savage, PT, Cert MDT - Visit Plan Frequency: 2-3x /Week Duration: 4-6 Weeks Plan: CONSIDER AQUATIC THERAPY. START ON LAND WITH POSTURE CORRECTION/STRENGTHENING, INSTRUCTION IN APPROPRIATE BODY MECHANICS AND ACTIVITY MODIFICATIONS. DLS STARTING WITH A NEUTRAL SPINE PROGRESSING ROM TOLERATED. CONCHA LE ROM, STRETCHING AND STRENGTHENING. HEP INSTRUCTION. CONSIDER US AND E- STIM. 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 Disability: NO. Present symptoms: RIGHT >LEFT LOW BACK PAIN. RIGHT > LEFT GROIN PAIN. PAIN RADIATES DOWN INSIDE OF RIGHT > LEFT THIGH TO ABOUT THE KNEE. PATIENT DENIES CONCHA LE NUMBNESS AND TINGLING. NO PAIN BELOW THE KNEES EXCEPT FEET THAT PATIENT RELATES TO ARTHRITIS. PATIETN REPORTS DR. VILLARREAL SAID SHE HAS SEVERE ARTHRITIS IN BOTH FEET. PATIENT STATES BOTH OF MY KNEES ARE JUNK BUT REPORTS LEFT KNEE SWELLS MORE THAN RIGHT AND WEARS LEFT KNEE BRACE ABOUT 3 TIMES A WEEK. PATIENT REPORTS DR[address] Haim AKHTAR THINKS HER LEFT KNEE PAIN MIGHT BE COMING FROM HER BACK AND THEREFORE REFERRED HER TO PT. Present since: LONG TIME AGO. I JUST PUT IT OFF. Pain Scale: WORST 5/10, LEAST 1/10. Currently: 4/10. Commenced as a result of: NO APPARENT REASON. Symptoms at onset: RIGHT LOW BACK PAIN. Worse: SITTING TOO LONG, STANDING TOO LONG, CARRYING LAUNDRY UP AND DOWN STEPS, BENDING, RISING FROM SITTING AND INTIATING GAIT. Better: CHANGE OF POSITION. Disturbed sleep: YES. Previous history/Previous treatment: CHIROPRACTOR FOR A FEW VISITS FOR RIGHT SCIATICA APPROX 2016 - RESOLVED EVENTUALLY. EPISODE LASTED ABOUT 2 WEEKS. NO BACK SURGERY. NO HIP SX. NO KNEE SX. NO INJECTIONS. NO PT. NO PRESCRIPTION MEDICATIONS. Treatment this episode: PT CONSULT ONLY. Coughing/sneezing/straining: NEGATIVE. Gait: PATIENT REPORTS SHE CAN'T WALK STANDING STRAIGHT. Difficulty initiating urination: NO. DENIES LOSS OF BOWEL AND BLADDER CONTROL. Accidents: NO. Unexplained weight loss: NO. Imaging: RECENT BACK AND L KNEE X-RAYS: STUDY: XR Knee Complete 4 Views or More 02/22/2021 2:25 PM. REASON FOR EXAM: Female, 60 years old. PAIN. TECHNIQUE: XR Knee Complete 4 Views or More. COMPARISON: None. . FINDINGS: Normal visualized distal femur. Normal visualized proximal tibia and. fibula. Normal proximal tibiofibular articulation. Normal medial femorotibial compartment. Normal lateral femorotibial. compartment. There is mild degenerative arthrosis of the patellofemoral. articulation. The soft tissue structures are unremarkable. . RAD/Knee 4 or More Views. IMPRESSION: There is mild degenerative arthrosis of the patellofemoral articulation. . Electronically Signed: Denis Marques MD. at 14:26 EST. STUDY: X-RAY - LUMBAR SPINE. REASON FOR EXAM: Female, 60 years old. Back pain LOW BACK PAIN. TECHNIQUE: XR Spine Lumbar 2 or 3 Views. COMPARISON: None. . FINDINGS: Normal lumbar lordosis. There is a dextroscoliosis of the lumbar spine. There is a normal alignment of the vertebrae. There is multilevel endplate spondylosis of the lumbar vertebrae. There is. multi-level degenerative disc disease with multi-level disc space. narrowing. The soft tissue structures are unremarkable. . RAD/Lumbar Spine 2 or 3 Views. IMPRESSION: Degenerative changes of the spine, as detailed above. . Electronically Signed: Denis Marques MD. at 14:26 EST. Recent major surgery/PMH: OA OF CONCHA HIPS - MODERATE, HYPERLIPIDEMIA,. SEVERE CONCHA FOOT ARTHRIS. CONCHA KNEE ARTHRITIS. OTHER: RECENT ORTHOTICS MADE FEB 2021. - Objective Sitting/Standing Posture: POOR. SCOLIOSIS. INCREASED TRUNK FLEXION. Active Correction of posture: WORSE. Other Observations: UE DEPENDENT TO TRANSFER FROM SIT TO STAND. INCREASED FLEXION IN STANDING AFTER SITTING AND GREAT DIFFICULTY BEARING WEIGHT ON RIGHT LE TO WALK AFTER SITTING. Motor deficit: RIGHT HIP 3+/5, KNEE EXT 4/5, KNEE FLEX 4/5, ANKLE 5/5. L HIP 4-/5, KNEE 4+/5, ANKLE 5/5. Sensory deficit: CONCHA LE LIGHT TOUCH SENSATION GROSSLY INTACT AND SYMMETRICAL. ROM deficit: TIGHT CONCHA HIP FLEXORS, HIP ROTATORS, RIGHT HIP FLEXION, CONCHA HS'S R > L AND CONCHA GASTROC SOLEUS COMPLEX'S RIGHT > LEFT. Reflexes: NT. Dural Signs: POSITIVE CONCHA LE'S. Lumbar mvmt loss: flex - MIN. ext - JUN. R SG - JUN. L SG - MOD. PATIENT C/O INCREASED PAIN WITH LUMBAR ROM TESTING ALL PLANES. Core strength: POOR. Palpation: NO ACUTE LOWER THORACIC, LUMBAR OR CONCHA HIP TENDERNESS BUT INCREASED MUSCLE TONE OF CONCHA PARASPINALS. - Balance/Special Test Scores Oswestry Low Back Score: 15 - Goals Goal 1:: DECREASE C/O BACK AND CONCHA LE SX'S. Goal Time Frame: 4-6 Weeks Goal 2:: IMPROVE PERSONAL CARE, LIFTING, WALKING, SITTING, STANDING, SLEEP, TRAVEL AND WORK/HOMEMAKING FUNCTION Goal Time Frame: 4-6 Weeks Goal 3:: INSTRUCT IN PROPHYLAXIS Goal Time Frame: 4-6 Weeks - Anticipated Interventions Patient/Client Instruction: Educate patient on: Condition, Plan of Care, Risk Factors For the Purpose of:: To improve self management Therapeutic Exercise to Include: Strength training, Body mechanics, Postural training, Flexibilty training, Neuromotor development, In an aquatic setting, Dynamic Lumbar Stabilization For the Purpose of:: To decrease pain, To increase ROM, To improve muscle performance and motor function, To increase tolerance to activity/condition/position, To improve ability of physical actions for home/community/work/leisure, To improve gait and locomotor functions TENS: Yes IF ES: Yes Cryotherapy (ice pack, ice massage): Yes Thermo therapy (hot pack): Yes Ultrasound (thermal/non thermal): Yes For the Purpose of:: To decrease pain, To improve nutrient delivery to tissue Thank you for the opportunity to evaluate your patient. For Medicare and Medicare HMO plans, please review the plan of care and approve it. It will need to be FAXED BACK to us at [phone] for Medicare purposes. For Medicare only, by signing this I certify the plan of care. Please let me know if there are questions or concerns regarding this plan of care. Physician Signature: Date:
--- NOTE | 2021-06-24 13:58 | HP.PTDCSUM ---
It has been my pleasure to treat YULIA BERMEO referred by Dr. Lewis Villarreal MD, with the diagnosis of R LUMBAR RADICULOPATHY AND OA OF L KNEE for a total of 15 visit(s). Discharge Date: Please see the following information for a summary of their discharge status. Subjective: PATIENT REPORTS SHE FELT GREAT AFTER LAST VISIT AND SHE IS IN THE PROCESS OF TRYING TO GET A HOME TENS UNIT. RIGHT LB Pain Intensity (Out of 10): 2 CONCHA GROIN Pain Intensity (Out of 10): 6 L KNEE Pain Intensity (Out of 10): 2 FEET Pain Intensity (Out of 10): 4 % Improvement: 60 Objective/Function: PATIENT WAS SEEN TODAY FOR RE-ASSESSMENT OF PROGRESS TOWARD THE SET PT GOALS AND THE NEED FOR FURTHER PHYSICAL THERAPY VS READINESS FOR DISCHARGE. PATIENT HAS MADE GOOD PROGRESS TOWARD ALL PT GOALS AND IS INDEP WITH A HEP FOR CORE AND LE'S BUT STILL HAS SIGNIFICANT PAIN AND LIMITATIONS. SHE MAY BE A GOOD AQUATIC THERAPY CANDIDATE IN THE FUTURE IF HER IMPROVEMENT WITH THE HEP IS LIMITED BY PAIN. UPON EXAM TODAY: PATIENT IS NO LONGER. UE DEPENDENT TO TRANSFER FROM SIT TO STAND. SHE STILL HAS DIFFICULTY INITIATING GAIT ON RIGHT LE AFTER SITTING BUT IS BEARING WEIGTH BETTER THAN AT INITIAL EVAL. SHE ALSO STILL STANDS AND WALKS WITH INCREASED TRUNK FLEXION. Motor deficit: RIGHT HIP 4-/5, KNEE EXT 4/5, KNEE FLEX 4/5, ANKLE 5/5. L HIP 4/5, KNEE 4+/5, ANKLE 5/5. Sensory deficit: CONCHA LE LIGHT TOUCH SENSATION GROSSLY INTACT AND SYMMETRICAL. ROM deficit: TIGHT CONCHA HIP FLEXORS, HIP ROTATORS, RIGHT HIP FLEXION, CONCHA HS'S R > L AND CONCHA GASTROC SOLEUS COMPLEX'S RIGHT > LEFT. Dural Signs: POSITIVE CONCHA LE'S. Lumbar mvmt loss: flex - MIN. ext - JUN. R SG - JUN. L SG - MOD. PATIENT C/O INCREASED PAIN WITH LUMBAR ROM TESTING ALL PLANES. Goal 1:: DECREASE C/O BACK AND CONCHA LE SX'S. Goal Progress: Goal Met Goal 2:: IMPROVE PERSONAL CARE, LIFTING, WALKING, SITTING, STANDING, SLEEP, TRAVEL AND WORK/HOMEMAKING FUNCTION Goal Progress: Goal Met Goal 3:: INSTRUCT IN PROPHYLAXIS Goal Progress: Goal Met Plan: D/C TO HOME EX PROGRAM. PATIENT AGREEABLE. If there are questions or concerns regarding this patient's physical therapy, please feel free to call me at [phone]. Thank you for the referral of this patient. Sincerely, Kellen Savage PT, Cert MDT Balance/Gait/Functional tests - Balance/Special Test Scores Oswestry Low Back Score: 9
== END 2021-06-24 14:20 | disposition home or self-care (01) ==
LOC: PT 13:30
PROVIDERS: PCP Family Medicine Geriatric Medicine; Referring Provider Family Medicine Geriatric Medicine; Visit Provider Family Medicine Geriatric Medicine
DX: M17.9 Osteoarthritis of knee, unspecified (principal); M54.16 Radiculopathy, lumbar region
CPT/HCPCS: 97014; 97035; 97110; 97162; 97164; 97530; G0283

== ENCOUNTER → 2021-08-26 | Outpatient (CLI) | payer MEDICAID, SELFPAY ==
[2021-08-26 12:17] LABS: Basophil# 0.04 X10^3/uL; Basophil% 0.7 % (0-1); Eosinophil# 0.14 X10^3/uL; Eosinophils% 2.5 % (0-5); Hematocrit 41.3 % (37-47); Hemoglobin 13.7 g/dL (12.0-15.0); Lymphocyte % 32.1 % (19-41); Mean Corp Hgb Conc 33.2 g/dL (32-36); Mean Corpuscular Volume 87.3 fL (81-99); Mean Platelet Vol. 9.1 fl (6.2-12.0); Monocyte# 0.61 X10^3/uL; Monocyte% 10.9 % (0-10); NRBC Flagged by Analyzer 0 % (0-5); Neutrophil % 53.6 % (47-70); Platelet Count 263 K/mm3 (150-450); RBC Distribution Width CV 13.2 % (11.6-14.6); RBC Distribution Width SD 42.4 fl (35.1-43.9); Red Blood Count 4.73 M/mm3 (4.2-5.4); White Blood Count 5.6 K/mm3 (4.4-11.0)
[2021-08-26 12:36] LABS: AST(SGOT) 28 U/L (15-37); Alanine Aminotransfer ALT/SGPT 30 U/L (13-56); Albumin, Serum 3.6 g/dL (3.2-5.0); Alkaline Phosphatase 66 U/L (45-117); Anion Gap 4 (5-15); BUN 18 mg/dL (7-18); BUN/Creat Ratio 27.2 RATIO (10-20); Chloride 107 mmol/L (98-107); Creatinine, Serum 0.66 mg/dL (0.55-1.02); EST Glomerular Filtration Rate 97 mL/min (>60); Est Glom Filt Rate - Afr Amer 117 mL/min (>60); Globulin 3.6 g/dL (2.2-4.2); Glucose 102 mg/dL (74-106); Potassium 4.3 mmol/L (3.5-5.1); Protein, Total 7.2 g/dL (6.4-8.2); Sodium Level 140 mmol/L (136-145); Thyroid Stim Hormone (TSH) 0.98 uIU/mL (0.358-3.74)
== END | disposition home or self-care (01) ==
LOC: POLAB3 11:10
PROVIDERS: PCP Family Medicine Geriatric Medicine; Visit Provider Family Medicine Geriatric Medicine
DX: I10 Essential (primary) hypertension (principal)
CPT/HCPCS: 36415; 80053; 84443; 85025

== ENCOUNTER → 2021-09-23 | Outpatient (CLI) | payer MEDICAID, SELFPAY ==
--- NOTE | 2021-09-23 14:36 | RAD_ITS ---
STUDY: XR Knee 3 Views 09/23/2021 9:21 PM REASON FOR EXAM: Female, 61 years old. L KNEE PAIN Technologist Notes LEFT KNEE PAIN, HX OF ARTHRITIS, KNEE RECENTLY GAVE OUT TECHNIQUE: XR Knee 3 Views LEFT COMPARISON: 11.8.21 FINDINGS: Normal visualized distal femur. Normal visualized proximal tibia and fibula. Normal proximal tibiofibular articulation. There is mild degenerative arthrosis of the medial femorotibial compartment. There is mild degenerative arthrosis of the lateral femorotibial compartment. There is mild degenerative arthrosis of the patellofemoral articulation. The soft tissue structures are unremarkable. RAD/Knee 3 Views IMPRESSION: Degenerative arthrosis. Electronically Signed: Denis Marques MD at 21:22 EDT ,
== END | disposition home or self-care (01) ==
LOC: RAD 14:32
PROVIDERS: PCP Family Medicine Geriatric Medicine; Referring Provider Family Medicine Geriatric Medicine; Visit Provider Family Medicine Geriatric Medicine
DX: M25.569 Pain in unspecified knee (principal)
CPT/HCPCS: 73562

== ENCOUNTER → 2021-09-27 | Outpatient (CLI) | payer MEDICAID, SELFPAY ==
--- NOTE | 2021-09-27 10:28 | BI_ITS ---
MAMMOGRAPHY - BILATERAL SCREENING REASON FOR EXAM: Female, 61 years old. Routine annual screening examination. PERTINENT HISTORY: Non-contributory. TECHNIQUE: Digital bilateral breast philly (3D mammographic acquisition) in the CC and MLO projections. 2-D mediolateral oblique (MLO) and craniocaudad (CC) views of both breasts were obtained. CAD: Full Field Digital Mammography with Computer Added Detection was performed. COMPARISON: Comparison is made with prior EXAMINATION 12/07/2020. FINDINGS: Breast Composition: The breasts are almost entirely fatty. There are no dominant masses or suspicious calcifications. Stable small benign-appearing bilateral axillary lymph nodes. No other significant abnormalities are identified. There has been no significant change since the prior study. BI/SCRN MAMM (CAD)W/PHILLY BILAT IMPRESSION: Stable bilateral screening mammogram. Yearly follow-up mammogram recommended. (A) ASSESSMENT CATEGORY: BIRADS Category 2: Benign. A letter regarding these results will be sent to the patient by the facility within 30 days. Approximately 10% of breast cancers are not detected by mammography. A normal mammogram should not delay biopsy of a clinically suspicious abnormality. [id number] Electronically Signed: Heriberto Nava MD at 12:18 EDT ,
== END | disposition home or self-care (01) ==
LOC: OPBI 10:27
PROVIDERS: PCP Family Medicine Geriatric Medicine; Referring Provider Family Medicine Geriatric Medicine; Visit Provider Family Medicine Geriatric Medicine
DX: Z12.31 Encounter for screening mammogram for malignant neoplasm of breast (principal)
CPT/HCPCS: 77063; 77067

== ENCOUNTER 2021-10-06 10:30 | Outpatient (RCR) | payer MEDICAID, SELFPAY | END 2021-10-14 23:59 | LOC: NS 10:30 | PROVIDERS: PCP Family Medicine Geriatric Medicine; Referring Provider Family Medicine Geriatric Medicine; Visit Provider Family Medicine Geriatric Medicine | DX: Z71.3 Dietary counseling and surveillance (principal); E66.3 Overweight; Z68.29 Body mass index [BMI] 29.0-29.9, adult | CPT/HCPCS: 97802 ==

== ENCOUNTER → 2022-03-03 | Outpatient (CLI) | payer MEDICAID, SELFPAY ==
[2022-03-03 12:32] LABS: Absolute Lymphocyte Count 1.64 X10^3/uL (0.83-4.51); Absolute Neutrophil Count 3.1 X10^3/uL (2.0-7.7); Basophil# 0.03 X10^3/uL; Basophil% 0.6 % (0-1); Eosinophil# 0.12 X10^3/uL; Eosinophils% 2.2 % (0-5); Hemoglobin 13.5 g/dL (12.0-15.0); Lymphocyte # 1.64 X10^3/ul (0.83-4.51); Lymphocyte % 30.4 % (19-41); Mean Corp Hgb Conc 32.9 g/dL (32-36); Mean Platelet Vol. 9.3 fl (6.2-12.0); Monocyte# 0.45 X10^3/uL; Monocyte% 8.3 % (0-10); NRBC Flagged by Analyzer 0 % (0-5); Neutrophil # 3.14 X10^3/uL (2.7-7.7); Neutrophil % 58.1 % (47-70); Platelet Count 285 K/mm3 (150-450); RBC Distribution Width CV 12.6 % (11.6-14.6); RBC Distribution Width SD 40.8 fl (35.1-43.9); Red Blood Count 4.66 M/mm3 (4.2-5.4); White Blood Count 5.4 K/mm3 (4.4-11.0)
[2022-03-03 13:03] LABS: Vitamin D,25 Hydroxy 64.8 ng/mL
[2022-03-03 13:38] LABS: ALB/GLOB Ratio 1.2 RATIO (0.9-2.4); AST(SGOT) 18 U/L (15-37); Alanine Aminotransfer ALT/SGPT 32 U/L (13-56); Albumin, Serum 3.7 g/dL (3.2-5.0); Alkaline Phosphatase 61 U/L (45-117); Anion Gap 7 (5-15); BUN 19 mg/dL (7-18); BUN/Creat Ratio 34.1 RATIO (10-20); Calcium,Total 9.1 mg/dL (8.5-10.1); Chloride 107 mmol/L (98-107); Creatinine, Serum 0.56 mg/dL (0.55-1.02); EST Glomerular Filtration Rate 118 mL/min (>60); Est Glom Filt Rate - Afr Amer 142 mL/min (>60); Globulin 3.2 g/dL (2.2-4.2); Glucose 101 mg/dL (74-106); Potassium 3.8 mmol/L (3.5-5.1); Protein, Total 6.9 g/dL (6.4-8.2); Sodium Level 140 mmol/L (136-145); Thyroid Stim Hormone (TSH) 0.93 uIU/mL (0.358-3.74)
== END | disposition home or self-care (01) ==
LOC: POLAB3 09:21
PROVIDERS: PCP Family Medicine Geriatric Medicine; Visit Provider Family Medicine Geriatric Medicine
DX: E55.9 Vitamin D deficiency, unspecified (principal); R53.83 Other fatigue
CPT/HCPCS: 36415; 80053; 82306; 84443; 85025

== ENCOUNTER 2024-05-03 11:56 | Emergency (ER) | payer OTHER, SELFPAY ==
[2024-05-03 11:57] VITALS: BP 154/70; PULSE 64; RESP 15; TEMP 37.1; O2SAT 96
--- NOTE | 2024-05-03 12:31 | ED.VIS.BACK ---
HPI History of Present Illness Chief Complaint: Back Detail of Chief Complaint: Left sciatica. Informant: patient and spouse/S.O. Onset/Context/Timing Onset: Days Context: Gradual Onset Timing: Continuous Current Severity: Moderate Maximum Severity: Moderate Worsened by: improves with Movement Relieved by: Remaining Still Associated Symptoms Associated Symptoms: Radiation to Left Leg Narrative Narrative: 63-year-old female who prior history of sciatica. No prior back surgery. No fall or trauma. Since Monday she has noticed pain down her left lower back into her buttock and hamstring. Worse with movement of her leg or bending. Better if she remains still. Denies any fall or injury. No fever. She was seen in urgent care they put her on a tapering dose of prednisone. She has not covering it. Prior similar symptoms: Yes Recent Illness/Hospitalization: No [facility] Medical History Osteoarthritis H/O gastroesophageal reflux (GERD) Sleep apnea Home Medications ?Medication ?Instructions ?Recorded ?Last Taken ?Type B-complex with vitamin C 1 ea PO DAILY 10/14/19 Unknown History ascorbic acid (vitamin C) 500 mg 500 mg PO DAILY 10/14/19 Unknown History capsule,extended release famotidine 40 mg tablet 40 mg PO DAILY 10/14/19 Unknown History ibuprofen 200 mg tablet 200 mg PO BID 10/14/19 Unknown History losartan 50 mg tablet 50 mg PO DAILY 05/03/24 Unknown History metformin 500 mg tablet mg DAILY 05/03/24 Unknown History prednisone 10 mg tablet mg 05/03/24 Unknown History prednisone 20 mg tablet 40 mg (2 x 20 mg) PO DAILY 7 days 05/03/24 Unknown Rx #14 tabs topiramate 25 mg tablet mg 05/03/24 Unknown History Allergy/AdvReac Type Severity Reaction Status Date / Time dandelion (Taraxacum AdvReac Swelling Verified 05/03/24 12:00 officinale) venom-honey bee AdvReac swelling Verified 05/03/24 12:00 Social History Smoking Status: Former smoker ROS ROS ED ROS Narrative Left lower back pain. No recent illness. Constitutional Constitutional ED: Denies chills or fever(s) Eyes Eyes: Denies blurry vision ENT ENT ED: Denies ear pain Cardiovascular Cardiovascular: Denies chest pain Respiratory/Chest Respiratory/Chest: Denies dyspnea Gastrointestinal Gastrointestinal: Denies abdominal pain Genitourinary Genitourinary ED: Denies dysuria or hematuria Musculoskeletal Musculoskeletal: Reports back pain; Denies arthralgias Integumentary Denies abscess Neurologic Neurologic: Denies headache(s) Psychiatric Psychiatric: Denies anxiety Endocrine Endocrinology: Denies cold intolerance Hematologic/Lymphatic Hematologic/Lymphatic: Denies easy bleeding or easy bruising Allergic/Immunologic Allergic/Immunologic ED: Denies mouth swelling, tongue swelling or urticaria EXAM Physical Exam Narrative Exam Narrative: 61-year-old female no acute distress. Vital signs are stable afebrile. H EENT exam unremarkable. Moist mucous membranes. Lungs clear to auscultation. Heart regular rhythm rate about 65 no murmur. Chest wall ribs nontender. Abdomen soft nontender. Moving all 4 extremities. Neurovascular intact. 5 out of 5 privacy compliance manager strength. Dorsi plantarflexion intact. Positive straight leg raise test on the left at about 20 degrees. She has normal motor strength and sensation of both lower extremities. Negative straight leg raise on the right. Back and spine nontender. Tender over the left SI joint. No ecchymosis or bruising redness or warmth. Neurologically she is awake and alert. No focal motor or sensory deficits. Normal strength. Exam consistent with left-sided sciatica. Const Vital Signs: 05/03/24 11:57 Temperature 98.7 F Temperature Source Oral Pulse Rate 64 Respiratory Rate 15 Blood Pressure 154/70 H Blood Pressure Mean 98 Pulse Ox 96 Oxygen Delivery Method Room Air Positive well nourished and well developed; Negative for cachectic, contractures or unkempt General Appearance ED: well developed; Negative for unkempt, cachectic, contractures or pallor Nutritional Appearance: Negative for cachectic HEENT Reports moist mucous membranes Negative for trauma or tenderness Eyes PERRL and EOMs intact bilaterally General Eye ED: Negative for pale conjunctiva or scleral icterus Neck no lymphadenopathy, supple and no JVD Resp normal respiratory effort and clear to auscultation bilaterally Auscultation: Negative for rales, rhonchi, wheezes or diminished lung sounds Cardio regular rate, regular rhythm, S1 normal heart sound, S2 normal heart sound and no murmurs Palpation: Negative for palpable S3 Rate: Negative for bradycardia or tachycardic Rhythm: Negative for abnormal rhythm Bruits: Negative for other GI normal to inspection, nondistended, normoactive bowel sounds, soft to palpation, non-tender, non-distended and no masses Palpation: Negative for tender, guarding or rebound tenderness present Back/Spine no thoracic nor lumbar tenderness; Negative for normal to inspection Back/Spine Narrative: Left SI tenderness. Straight leg raise test on the left at about 20 to 30 degrees. Normal strength both lower extremities. Normal sensation. No spine tenderness. Cervical Spine: Negative for cervical spine tenderness and Negative for paracervical muscle tenderness Thoracic Spine / Upper Back: Negative for paraspinal muscle tenderness Extremity normal to inspection and no clubbing, cyanosis or edema Neuro oriented x3 and no sensory deficits noted Sensorium / Orientation: alert; Negative for confused, lethargic or stuporous Motor Exam: strength 5/5 throughout Psych mental status grossly normal Appearance: Negative for unkempt Attitude: No agitated Mood & Affect: Negative for depressed, sad or tearful Skin no rashes or lesions noted and no wounds General Skin Exam: Negative for jaundice or pallor Lesions: No lesion noted Rashes: No rashes noted Trauma: Negative for abrasion or puncture Wounds: Negative for wounds noted MDM MDM MDM Narrative Medical decision making narrative: 63-year-old female exam and history consistent with left-sided sciatica. Should be placed on prednisone 40 mg a day for 7 more days she is already taken it for like 3 or 4. She be given IM injection for morphine and p.o. Zofran. Use Tylenol and limited Motrin at home for pain. Outpatient follow-up as needed with her primary care physician. History & Record Review Discussion w/independent historian: Patient and Family Discharge Plan Triage Chief Complaint: Back ED Provider: Pankaj Wallace Dx/Rx/DC Orders Clinical Impression: Sciatica Instructions: ED Sciatica Prescriptions: New prednisone 20 mg tablet 40 mg PO DAILY 7 Days Qty: 14 0RF No Action famotidine 40 MG tablet 40 mg PO DAILY ibuprofen 200 MG tablet 200 mg PO BID ascorbic acid (vitamin C) 500 MG capsule, extended release 500 mg PO DAILY B-complex with vitamin C 1 EACH tablet 1 ea PO DAILY losartan 50 mg tablet 50 mg PO DAILY metformin 500 mg tablet DAILY prednisone 10 mg tablet Patient Comments: [NO ORIGINAL SIG] topiramate 25 mg tablet Primary Care Provider: Lewis Villarreal Chi Referrals: Lewis Villarreal Chi, MD [Primary Care Provider] - 1 Week if not improving Activity Restrictions/Additional Instructions: Ice to your back redo of your sciatic notch. Alternate Tylenol and Motrin for pain. I would not use more than 6 Motrin a day since you are on the prednisone. Prednisone daily 40 mg a day for the next week. Take 2 more today and take 4 of your current prescription tomorrow then start my prescription. This should progressively start to improve if not follow-up with your doctor for further evaluation. Print Language: Prydeinig Disposition Disposition: Home, Self Care
[2024-05-03] MEDS: Ondansetron 8 MG Tablet PO (12:36)
[2024-05-03] MEDS: morphine 10 MG/ML Syringe IM (12:36)
[2024-05-03 12:46] VITALS: BP 146/79; PULSE 88; RESP 16; TEMP 36.3; O2SAT 98
== END 2024-05-03 12:47 | disposition home or self-care (01) ==
LOC: ED 12:36
PROVIDERS: Emergency Provider Emergency Medicine; PCP Student in an Organized Health Care Education/Training Program; Visit Provider Emergency Medicine
DX: M54.32 Sciatica, left side (principal); G47.30 Sleep apnea, unspecified; Z87.891 Personal history of nicotine dependence; Z79.899 Other long term (current) drug therapy